=== PATIENT | female | born 1955 | race Native Hawaiian/Other Pacific Islander ===

== ENCOUNTER 2017-03-31 03:26 | Emergency (ER) | payer BC, OTHER ==
--- NOTE | 2017-03-31 04:03 | C.PDOC ---
History Of Present Illness 62 year old female who presents to the ER with a complaint of coughing up bloody mucous. Denies bloody vomiting or bloody diarrhea. Chief Complaint (Nursing): Medical Clearance History Per: Patient History/Exam Limitations: no limitations Onset/Duration Of Symptoms: Hrs Current Symptoms Are (Timing): Still Present Recent travel outside of the [place]: No Past Medical History Reviewed: Historical Data, Nursing Documentation, Vital Signs Vital Signs: Last Vital Signs Temp Pulse 82 03/31/17 03:29 Resp 16 03/31/17 03:29 BP 156/91 H 03/31/17 03:29 Pulse Ox 97 03/31/17 06:16 - Medical History PMH: HTN, Hyperlipidemia Surgical History: No Surg Hx Family History: States: Unknown Family Hx - Social History Hx Alcohol Use: No Hx Substance Use: No - Immunization History Hx Tetanus Toxoid Vaccination: No Hx Influenza Vaccination: No Hx Pneumococcal Vaccination: No Review Of Systems Constitutional: Negative for: Fever, Chills Respiratory: Positive for: Sputum (Bloody) Gastrointestinal: Negative for: Nausea, Vomiting, Diarrhea Physical Exam - Physical Exam Appears: Non-toxic, No Acute Distress, Other (coughing up bloody mucous) Skin: Normal Color, Warm, Dry Head: Atraumatic, Normacephalic Eye(s): bilateral: Normal Inspection, PERRL, EOMI Nose: Normal, No Discharge, No Epistaxis, No Tenderness, Other (no active post- nasal bleeding noted) Oral Mucosa: Moist Lips: Normal Appearing Throat: Normal, No Erythema, Other (no active bleeding noted) Chest: Symmetrical, No Tenderness Cardiovascular: Rhythm Regular, No Murmur Respiratory: Normal Breath Sounds, No Rales, No Rhonchi, No Wheezing Gastrointestinal/Abdominal: Soft, No Tenderness Neurological/Psych: Oriented x3, Normal Speech, Normal Cognition ED Course And Treatment - Laboratory Results Result Diagrams: 03/31/17 04:08 03/31/17 04:08 O2 Sat by Pulse Oximetry: 97 (Room air) Pulse Ox Interpretation: Normal Progress Note: CT sinuses and blood work ordered. Disposition Counseled Patient/Family Regarding: Diagnosis - Disposition Referrals: Sacha Weiss MD [Staff Provider] - Disposition: HOME/ ROUTINE Disposition Time: 06:47 Condition: STABLE Prescriptions: Amoxicillin [Amoxil 500 mg Cap] 500 mg PO TID #20 cap Loratadine [Claritin] 10 mg PO DAILY #14 tab Instructions: Rhinosinusitis (ED) Forms: [facility] (Swiss) - POA Present On Arrival: None - Clinical Impression Clinical Impression: Rhinosinusitis - Scribe Statement The provider has reviewed the documentation as recorded by the Scribfina Coates All medical record entries made by the Scribe were at my direction and personally dictated by me. I have reviewed the chart and agree that the record accurately reflects my personal performance of the history, physical exam, medical decision making, and the department course for this patient. I have also personally directed, reviewed, and agree with the discharge instructions and disposition.
[2017-03-31 04:13] LABS: BASO # 0.1 K/uL (0.0-0.2); BASO % 0.9 % (0.0-2.0); EOS # 0.2 K/uL (0.0-0.7); EOS % 2.5 % (0.0-4.0); HEMATOCRIT 39.4 % (34.0-47.0); LYMPH # 2.9 K/uL (1.0-4.3); MEAN CORPUSCULAR HEMOGLOBIN 32.2 pg (27.0-31.0); MEAN CORPUSCULAR HGB CONC 33.6 g/dL (33.0-37.0); MEAN PLATELET VOLUME 9.8 fL (7.2-11.7); MONO # 0.5 K/uL (0.0-0.8); MONO % 8.4 % (0.0-10.0); RED CELL DISTRIBUTION WIDTH 13.1 % (11.5-14.5); WHITE BLOOD COUNT 6.4 K/uL (4.8-10.8)
[2017-03-31 04:18] LABS: CHLORIDE 102 mmol/L (98-107)
[2017-03-31 04:19] LABS: SODIUM 140 mmol/L (132-148)
[2017-03-31 04:20] LABS: POTASSIUM 4.4 mmol/L (3.6-5.2)
[2017-03-31 04:22] LABS: ALB/GLOB RATIO 1.1 (1.0-2.1); ALKALINE PHOSPHATASE 98 U/L (38-126); ALT/SGPT 74 U/L (9-52); AST/SGOT 58 U/L (14-36); BILIRUBIN,TOTAL 0.7 mg/dL (0.2-1.3); BLOOD UREA NITROGEN 21 mg/dL (7-17); CARBON DIOXIDE 26 mmol/L (22-30); GFR AFRICAN-AMERICAN > 60; GLUCOSE,RANDOM 170 mg/dL (65-105); TOTAL PROTEIN 7.4 g/dL (6.3-8.3)
[2017-03-31 04:23] LABS: CALCIUM 8.9 mg/dl (8.6-10.4)
[2017-03-31] MEDS ORDERED: Phenylephrine 0.25% Nasal Spray (15 ml) NS STA (05:27)
[2017-03-31] MEDS ORDERED: Phenylephrine 1% Nasal Spray (15 ml) ONE (05:44)
--- NOTE | 2017-03-31 06:42 | CT ---
EXAM: CT Maxillofacial Sinuses Without Intravenous Contrast CLINICAL HISTORY: 62 years old, female; Pain; Headache; Additional info: Hacking blood from post nasal drip TECHNIQUE: Computed tomography images of the maxillofacial sinuses without intravenous contrast. All CT scans at this facility use one or more dose reduction techniques, viz.: automated exposure control; ma/kV adjustment per patient size (including targeted exams where dose is matched to indication; i.e. head); or iterative reconstruction technique. Coronal and sagittal reformatted images were created and reviewed. COMPARISON: No relevant prior studies available. FINDINGS: Maxillary sinuses: Minimal mucosal thickening. No air-fluid levels. Sphenoid sinuses: Unremarkable. No air-fluid levels. Frontal sinuses: Unremarkable. No air-fluid levels. Ethmoid air cells: Minimal mucosal thickening. No air-fluid levels. Nasal cavity/septum: No acute findings. Bones/joints: No acute fracture. Degenerative changes of cervical spine. Soft tissues: Unremarkable. Orbits: Unremarkable as visualized. Oropharynx: Tonsillar calcifications. IMPRESSION: 1.No acute findings. 2.Non-acute findings are described above.
[2017-03-31 07:10] VITALS: BP 145/82; PULSE 81; RESP 18; TEMP 98.2; O2SAT 99
--- NOTE | 2017-03-31 08:24 | RAD ---
HISTORY: expectorating bloody mucoid material COMPARISON: Chest x-ray image performed 05/01/11 TECHNIQUE: Chest PA and lateral FINDINGS: Examination limited by habitus. LUNGS: Mild streaky atelectasis at the right lung apex. Biapical pleural thickening. Mild left greater than right bibasilar atelectasis. Please note that chest x-ray has limited sensitivity for the detection of pulmonary masses. PLEURA: No significant pleural effusion identified. No definite pneumothorax . CARDIOVASCULAR: Heart size appears within normal limits. Atherosclerotic calcifications of the aortic knob. OSSEOUS STRUCTURES: Mild degenerative changes. VISUALIZED UPPER ABDOMEN: Unremarkable. OTHER FINDINGS: None. IMPRESSION: Mild streaky atelectasis at the right lung apex. Biapical pleural thickening. Mild left greater than right bibasilar atelectasis.
== END 2017-03-31 07:10 | disposition home or self-care (01) ==
LOC: C.ER 03:26
DX: J32.9 Chronic sinusitis, unspecified (principal); I10 Essential (primary) hypertension; E78.5 Hyperlipidemia, unspecified